=== PATIENT | male | born 1970 | race Caucasian/White ===

== ENCOUNTER 2021-05-01 14:25 | Inpatient (IN) | payer MEDICARE, OTHER, SELFPAY ==
[~2021-05-01] VITALS: Ht 188 cm; Wt 117.9 kg
[2021-05-01 14:50] VITALS: BP_SYST 156
--- NOTE | 2021-05-01 14:50 | NUR ---
Pt bib ambulance for N/V and fatigue X days. Pt is apparently anxious and sweating while laying prone limiting verbal responses to assessment questions. Pt is obese male and with stable vital signs.
--- NOTE | 2021-05-01 14:50 | NUR ---
Pt to remain in tent until ER bed becomes available.
[2021-05-01] MEDS ORDERED: ONDANSETRON HCL 4 MG/2 ML VIAL IVP ONE (15:30)
[2021-05-01 16:24] LABS: BASOPHILS # (AUTO) 0.1 K/uL (0.0-0.2); BASOPHILS % (AUTO) 0.8 % (0.0-2.0); EOSINOPHILS # (AUTO) 0.1 K/uL (0.0-0.4); EOSINOPHILS % (AUTO) 1.5 % (0.0-4.0); HEMATOCRIT 34.3 % (36-54); HEMOGLOBIN 11.8 g/dL (14.0-18.0); LYMPHOCYTES # (AUTO) 1.1 K/uL (1.0-5.5); LYMPHOCYTES % (AUTO) 15.6 % (20.5-51.5); MEAN CORPUSCULAR HEMOGLOBIN 27 pg (27-31); MEAN CORPUSCULAR HGB CONC 34 % (32-36); MEAN CORPUSCULAR VOLUME 79 fL (79.0-98.0); MONOCYTES # (AUTO) 0.2 K/uL (0.0-1.0); MONOCYTES % (AUTO) 2.4 % (1.7-9.3); NEUTROPHILS # (AUTO) 5.8 K/uL (1.8-7.7); NEUTROPHILS % (AUTO) 79.7 % (40.0-70.0); PLATELET COUNT (AUTO) 444 K/uL (130-430); RED BLOOD CELL COUNT(AUTO) 4.35 MIL/uL (4.2-6.2); RED CELL DISTRIBUTION WIDTH 13.9 % (9.0-15.0); WHITE BLOOD COUNT (AUTO) 7.3 K/uL (4.8-10.8)
[2021-05-01 16:42] LABS: CALCIUM 9.5 mg/dL (8.4-11.0); CREATININE 1.45 mg/dL (0.55-1.30); POTASSIUM 4.4 mmol/L (3.5-5.1)
[2021-05-01 16:48] LABS: ALBUMIN 3.7 g/dL (3.4-4.8); TOTAL BILIRUBIN 0.4 mg/dL (0.0-1.0)
[2021-05-01] MEDS ORDERED: DIPHENHYDRAMINE INJ 50 MG/ML VIAL IVP ONE (17:15)
[2021-05-01] MEDS ORDERED: METOCLOPRAMIDE HCL 10 MG/2 ML VIAL IVP ONE (17:15)
[2021-05-01 17:55] LABS: BILIRUBIN,URINE NEGATIVE (NEGATIVE); BLOOD, URINE 2+ (NEGATIVE); CLARITY/URINE CLEAR (CLEAR); COLOR,URINE YELLOW (YELLOW); GLUCOSE,URINE TRACE (NEGATIVE); KETONES,URINE 1+ (NEGATIVE); LEUKOCYTE ESTERASE ,URINE NEGATIVE (NEGATIVE); NITRITE, URINE NEGATIVE (NEGATIVE); PROTEIN URINE 3+ (NEGATIVE); UROBILINOGEN,URINE 0.2 (0.2-1.0)
[2021-05-01 18:03] LABS: BACTERIA,URINE FEW /HPF (None Seen); WBC,URINE NONE SEEN /HPF (0-3)
[2021-05-01 18:04] LABS: MUCUS,URINE None Seen /LPF (None Seen)
--- NOTE | 2021-05-01 18:24 | NUR ---
# 22 gauge angiocath placed to L hand. Use of asceptic technique. Opsite placed over site. Blood return noted. Blood for lab drawn from site. Flushed with 10 cc of normal saline. No evidence of infiltration noted. Patient tolerated well.
[2021-05-01] MEDS ORDERED: MORPHINE 4 MG INJ. 4 MG/ML VIAL IVP ONE (20:00)
--- NOTE | 2021-05-01 20:00 | NUR ---
Morphine IV given , well tolerated
--- NOTE | 2021-05-01 20:53 | NUR ---
Radiology arrived at bedside well tolerated
[2021-05-01] MEDS ORDERED: LABETALOL 100 MG/ 20ML VIAL IVP ONE (22:00)
--- NOTE | 2021-05-01 22:22 | NUR ---
Dr. Burgess bedside for pt re-eval, pt kept asking "what did day shift do to his big black backpack??"
[2021-05-01 22:30] LABS: BARBITURATE, URINE NEGATIVE (NEG <=200); BENZODIAZEPINE, URINE NEGATIVE (NEG <=150); CANNABINOID, URINE NEGATIVE (NEG <=50); COCAINE, URINE NEGATIVE (NEG <=150); METHAMPHETAMINES SCREEN,URINE NEGATIVE (NEG <=500); OPIATE, URINE NEGATIVE (NEG <=100); PHENCYCLIDINE SCREEN,URINE NEGATIVE (NEG <=25); UR TRICYCLIC ANTIDEPRESSANTS NEGATIVE (NEG <=300); URINE AMPHETAMINE NEGATIVE (NEG <=500); URINE METHADONE NEGATIVE (NEG <=200); URINE OXYCODONE SCREEN NEGATIVE (NEG <=100); URINE PROPOXYPHENE SCREEN NEGATIVE (NEG <=300)
[2021-05-01] MEDS ORDERED: DICYCLOMINE HCL 10 MG CAPSULE PO ONE (22:30)
[2021-05-01] MEDS ORDERED: ASPIRIN 325 MG TABLET PO ONE (23:45)
--- NOTE | 2021-05-02 01:13 | NUR ---
Pt walked to and back from Mens Room urinated and ambulate, well tolerated
--- NOTE | 2021-05-02 02:58 | NUR ---
Dr. Burgess bedside for pt update, and explain regarding adm
[2021-05-02] MEDS ORDERED: LORazepam 2 MG/ML VIAL IVP ONE (03:00)
--- NOTE | 2021-05-02 04:10 | NUR ---
Pt walked to and from mens room, well tolerated
[2021-05-02] MEDS ORDERED: D5/0.45 NS 1,000 ML IV SCH (05:15)
--- NOTE | 2021-05-02 06:06 | NUR ---
Dr. Boyle adm to Tele, NPO, with Zofran PRN available
[2021-05-02] MEDS: ONDANSETRON HCL 4 MG/2 ML VIAL IVP PRN (08:07)
--- NOTE | 2021-05-02 08:09 | NUR ---
Zofran 4mg given to pt due to pt having nausea and experiencing slight vomiting. A consult was made to Dr. Peñaloza in regards to pt's elevated troponin levels. Pt getting admitted. Waiting for bed to become available.
[2021-05-02 08:21] LABS: BASOPHILS % (AUTO) 0.4 % (0.0-2.0); HEMATOCRIT 35.1 % (36-54); HEMOGLOBIN 11.8 g/dL (14.0-18.0); LYMPHOCYTES # (AUTO) 0.9 K/uL (1.0-5.5); MEAN CORPUSCULAR HEMOGLOBIN 27 pg (27-31); MEAN CORPUSCULAR HGB CONC 34 % (32-36); MEAN CORPUSCULAR VOLUME 79 fL (79.0-98.0); MONOCYTES # (AUTO) 0.3 K/uL (0.0-1.0); MONOCYTES % (AUTO) 2.9 % (1.7-9.3); NEUTROPHILS # (AUTO) 7.7 K/uL (1.8-7.7); NEUTROPHILS % (AUTO) 86.7 % (40.0-70.0); PLATELET COUNT (AUTO) 475 K/uL (130-430); RED BLOOD CELL COUNT(AUTO) 4.44 MIL/uL (4.2-6.2); RED CELL DISTRIBUTION WIDTH 13.9 % (9.0-15.0); WHITE BLOOD COUNT (AUTO) 8.9 K/uL (4.8-10.8)
--- NOTE | 2021-05-02 08:24 | NUR ---
EKG done and results were sinus tachycardia. Paged Dr. Peñaloza , waiting for call back.
--- NOTE | 2021-05-02 08:44 | NUR ---
Dr. Peñaloza at bedside.
[2021-05-02 08:52] LABS: ALBUMIN 3.4 g/dL (3.4-4.8); CALCIUM 9.1 mg/dL (8.4-11.0); CREATININE 1.42 mg/dL (0.55-1.30); TOTAL BILIRUBIN 0.5 mg/dL (0.0-1.0)
[2021-05-02] MEDS ORDERED: METOCLOPRAMIDE HCL 10 MG/2 ML VIAL IVP ONE (10:00)
[2021-05-02] MEDS ORDERED: PANTOPRAZOLE SODIUM 40 MG/VIAL (PROTONIX) IVP ONE (10:00)
[2021-05-02] MEDS ORDERED: INSULIN LISPRO SLIDING SCALE 100 UNITS/ML VIAL (humaLOG) SUBCUT PRN (10:00)
[2021-05-02] MEDS: NACL 0.9% 1,000 ML IV SCH ×5 (10:07→23:58)
[2021-05-02] MEDS: METOCLOPRAMIDE HCL 10 MG/2 ML VIAL IVP SCH ×2 (11:35→17:14)
[2021-05-02] MEDS ORDERED: amLODIPine BESYLATE 10 MG TABLET PO ONE (14:00)
--- NOTE | 2021-05-02 14:11 | NUR ---
Pt's BP is at 181/101. ER physician notified and she placed an order of amlodipine 10mg PO.
[2021-05-02] MEDS: LORazepam 2 MG/ML VIAL IVP PRN (17:02)
--- NOTE | 2021-05-02 19:30 | NUR ---
assumed care of pt from judi macedo
[2021-05-02] MEDS: LABETALOL HCL 100 MG TABLET PO SCH (20:58)
--- NOTE | 2021-05-02 22:41 | NUR ---
PT IS ASLEEP. VSS.
[2021-05-03] MEDS ORDERED: LORazepam 2 MG/ML VIAL ONE ×2 (00:42→08:41)
[2021-05-03] MEDS: LORazepam 2 MG/ML VIAL IVP PRN ×3 (00:46→12:14)
--- NOTE | 2021-05-03 02:00 | NUR ---
PT MOVED TO [facility] IN ORDER TO PLACE ANOTHER PT IN THE ROOM.
[2021-05-03] MEDS ORDERED: ONDANSETRON HCL 4 MG/2 ML VIAL ONE ×2 (02:09→06:04)
[2021-05-03] MEDS: ONDANSETRON HCL 4 MG/2 ML VIAL IVP PRN ×2 (03:57→06:09)
[2021-05-03 05:45] LABS: ALBUMIN 3.1 g/dL (3.4-4.8); CALCIUM 8.5 mg/dL (8.4-11.0); CREATININE 1.24 mg/dL (0.55-1.30); POTASSIUM 3.4 mmol/L (3.5-5.1); TOTAL BILIRUBIN 0.3 mg/dL (0.0-1.0)
[2021-05-03 05:46] LABS: PROTHROMBIN TIME 10.5 SECS (9.5-12.5)
[2021-05-03 05:46] LABS: BASOPHILS # (AUTO) 0.1 K/uL (0.0-0.2); BASOPHILS % (AUTO) 0.7 % (0.0-2.0); EOSINOPHILS % (AUTO) 0.3 % (0.0-4.0); HEMATOCRIT 34.8 % (36-54); HEMOGLOBIN 11.6 g/dL (14.0-18.0); LYMPHOCYTES # (AUTO) 0.8 K/uL (1.0-5.5); LYMPHOCYTES % (AUTO) 9.7 % (20.5-51.5); MEAN CORPUSCULAR HEMOGLOBIN 27 pg (27-31); MEAN CORPUSCULAR HGB CONC 33 % (32-36); MEAN CORPUSCULAR VOLUME 80 fL (79.0-98.0); MONOCYTES # (AUTO) 0.4 K/uL (0.0-1.0); MONOCYTES % (AUTO) 4.2 % (1.7-9.3); NEUTROPHILS # (AUTO) 7.4 K/uL (1.8-7.7); NEUTROPHILS % (AUTO) 85.1 % (40.0-70.0); PLATELET COUNT (AUTO) 406 K/uL (130-430); RED BLOOD CELL COUNT(AUTO) 4.35 MIL/uL (4.2-6.2); RED CELL DISTRIBUTION WIDTH 13.8 % (9.0-15.0); WHITE BLOOD COUNT (AUTO) 8.7 K/uL (4.8-10.8)
[2021-05-03] MEDS: NACL 0.9% 1,000 ML IV SCH ×3 (06:00→12:40)
[2021-05-03] MEDS ORDERED: METOCLOPRAMIDE HCL 10 MG/2 ML VIAL ONE ×2 (06:03→08:40)
[2021-05-03] MEDS: METOCLOPRAMIDE HCL 10 MG/2 ML VIAL IVP SCH ×2 (06:09→11:30)
--- NOTE | 2021-05-03 07:19 | NUR ---
REPORT GIVEN TO HAYLEY HECTOR
--- NOTE | 2021-05-03 07:48 | NUR ---
assumed patient care 51 years old male with nausea vomiting denies abdominal pain chest pain, no sob will continue to monitor awaiting for admit tele bed.
[2021-05-03] MEDS ORDERED: PANTOPRAZOLE SODIUM 40 MG/VIAL (PROTONIX) ONE (08:40)
[2021-05-03] MEDS ORDERED: PANTOPRAZOLE SODIUM 40 MG/VIAL (PROTONIX) IVP SCH (09:00)
[2021-05-03 11:48] VITALS: BP_SYST 177
[2021-05-03] MEDS: LABETALOL HCL 100 MG TABLET PO SCH (11:59)
--- NOTE | 2021-05-03 12:00 | NUR ---
po challenge given tolerated well, patient with hands tremors denies alcohol use, very anxious ativan given with fair effect.
--- NOTE | 2021-05-03 14:03 | NUR ---
patient alert, oriented x4 denies abdominal pain, tolerated po intake well, signed AMA Dr Boyle notified.
--- NOTE | 2021-05-03 14:05 | NUR ---
Patient does not wish to proceed with medical care recommended by Dr Boyle. Patient given information related to possible complications, up to and including , which could occur as a result of leaving hospital at this time. Patient verbalizes understanding of risks involved leaving against medical advice. Patient has signed AMA form.
== END 2021-05-03 14:05 | disposition left against medical advice (07) | DRG 74 ==
LOC: SED 14:25 → STU 05-02 05:15
PROVIDERS: ADMIT Internal Medicine; ATTEND Internal Medicine
DX: E11.43 Type 2 diabetes mellitus with diabetic autonomic (poly)neuropathy (principal); N17.9 Acute kidney failure, unspecified; I24.8 Other forms of acute ischemic heart disease; E86.0 Dehydration; I10 Essential (primary) hypertension; E11.9 Type 2 diabetes mellitus without complications; K29.70 Gastritis, unspecified, without bleeding; K31.84 Gastroparesis; Z20.822 Contact with and (suspected) exposure to COVID-19; F41.9 Anxiety disorder, unspecified; E66.9 Obesity, unspecified; E78.5 Hyperlipidemia, unspecified; Z68.33 Body mass index [BMI] 33.0-33.9, adult; Z79.1 Long term (current) use of non-steroidal anti-inflammatories (NSAID); Z79.4 Long term (current) use of insulin; Z79.899 Other long term (current) drug therapy
CPT/HCPCS: 36415; 71045; 76376; 76700-TC; 80053; 80307; 81000; 83690; 83880; 84484; 85025; 85610-TC; 85651-TC; 85730-TC; 93005; 93306; 96374; 96375; 99285; C9113; G0378; J1200; J2060; J2270; J2405; J2765